=== PATIENT | male | born 2000 | race Caucasian/White ===

== ENCOUNTER 2024-04-24 12:01 | Emergency (ER) | payer OTHER, MEDICAID, SELFPAY ==
[2024-04-24] VITALS (14 sets, daily range): BP systolic 120–152; BP diastolic 69–98; PULSE 59–80; RESP 16–19; TEMP 36.2–37; O2SAT 98–100; BMI 23.6
--- NOTE | 2024-04-24 12:20 | EKG_ITS ---
[address] [address] Test Date: 2024-04-24 Pat Name: Laura Burr Department: [facility] Room: Gender: Male Global Coordinator: RENUKA : 2000 Requested By: Order Number: [id number] Reading MD: Norbert Torres MD Measurements Intervals [place] Rate: 69 P: 37 UT: 172 QRS: 94 QRSD: 116 T: 10 QT: 390 QTc: 417 Interpretive Statements Sinus rhythm with marked sinus arrhythmia Rightward axis Cannot rule out Inferior infarct , age undetermined NO PRIOR TRACING Electronically Signed On 04-25-2024 7:37:55 PDT by Norbert Torres MD
[2024-04-24] MEDS: SODIUM CHLORIDE 0.9% 1,000 ML 1000 ML IV (12:35)
[2024-04-24 12:47] LABS: Add Manual Diff / Slide Review NO; Basophils Absolute Auto 0 /uL (0-100); Basophils Percent Auto 0.4 % (0-2); Eosinophils Absolute Auto 100 /uL (0-450); Eosinophils Percent Auto 0.7 % (2-4); Hematocrit 43.5 % (41-53); Hemoglobin 14.6 g/dL (13.5-17.5); Lymphocytes Absolute Auto 1800 /uL (1100-4500); Lymphocytes Percent Auto 15.9 % (25-40); Mean Corpuscular HGB Conc 33.5 % (30-36); Mean Corpuscular Hemoglobin 30.1 PG (26-34); Mean Corpuscular Volume 89.9 fL (80-100); Monocytes Absolute Auto 1200 /uL (0-900); Monocytes Percent Auto 10.4 % (3-14); Neutrophils Absolute Auto 8200 /uL (1500-7000); Neutrophils Percent Auto 72.6 % (50-75); Platelet Count 329 X10^3/uL (150-400); Red Blood Cell Count 4.84 X10^6/uL (4.5-5.9); Red Cell Distribution Width 13.3 % (11.6-14.8); White Blood Cell Count 11.3 X10^3/uL (4.5-11.0)
[2024-04-24 12:54] LABS: Alanine Aminotransferase 27 IU/L (<50); Albumin 4.7 g/dL (3.5-5.0); Albumin Globulin Ratio 1.4 (1.0-2.8); Alkaline Phosphatase 64 U/L (38-126); Aspartate Aminotransferase 31 IU/L (17-59); BUN Creatinine Ratio 14.1 (6-22); Bilirubin Total 0.6 mg/dL (0.2-1.3); Blood Urea Nitrogen 11 mg/dL (9-20); Carbon Dioxide 25 mmol/L (22-32); Chloride 101 mmol/L (98-107); Estimated Glomerular Filt Rate > 60 mL/min (>60); Globulin 3.4 g/dL (1.7-4.1); Glucose 97 mg/dL (70-100); HEMOLYSIS < 15 (0-50); Lipase 61 U/L (23-300); Potassium 3.8 mmol/L (3.4-5.1); Sodium 138 mmol/L (137-145); Total Protein 8.1 g/dL (6.3-8.2)
[2024-04-24 12:55] LABS: Lactate (Lactic Acid) 0.7 mmol/L (0.7-2.1)
[2024-04-24 13:11] LABS: Procalcitonin 0.065 ng/mL (<0.5)
[2024-04-24 13:18] LABS: Adenovirus Not Detected (Not Detect); B. parapertussis Not Detected (Not Detecte); Bordetella pertussis Not Detected (Not Detect); Chlamydophila pneumoniae Not Detected (Not Detect); Coronavirus 229E Not Detected (Not Detect); Coronavirus HKU1 Not Detected (Not Detect); Coronavirus NL 63 Not Detected (Not Detect); Coronavirus OC43 Not Detected (Not Detect); Human Metapneumovirus Not Detected (Not Detect); Human Rhinovirus/Enterovirus Not Detected (Not Detect); Influenza A Not Detected (Not Detect); Influenza B Not Detected (Not Detect); Mycoplasma pneumoniae Not Detected (Not Detect); Parainfluenza Virus 1 Not Detected (Not Detect); Parainfluenza Virus 2 Not Detected (Not Detect); Parainfluenza Virus 3 Not Detected (Not Detect); Parainfluenza Virus 4 Not Detected (Not Detect); Respiratory Syncytial Virus Not Detected (Not Detect); SARS- CoV-2 Not Detected (Not Detecte)
--- NOTE | 2024-04-24 13:40 | ED.ABDPAIN ---
HPI - Abdominal Pain General Chief Complaint: Abdominal Pain Stated Complaint: chest px, fever Time Seen by Provider: 04/24/24 13:32 Source: patient Mode of arrival: Ambulatory History of Present Illness HPI narrative: Patient here for reproducible epigastric substernal discomfort with eating and swallowing. Ongoing for the past 5 days since Monday. Also has had fever 101 102? relieved with Tylenol. Worse with eating and swallowing. However no discomfort with at rest. Patient has low heart risk factors. No nausea or vomiting. No urinary complaints. No lower abdominal pain. No known sick contacts. Has had body aches. No primary family history of coronary disease Related Data Previous Rx's Medication Instructions Recorded pantoprazole 40 mg tablet,delayed 40 mg PO DAILY #30 tabs 04/24/24 release (Protonix) sucralfate 1 gram tablet (Carafate) 1 g PO QAC #20 tabs 04/24/24 Allergies Allergy/AdvReac Type Severity Reaction Status Date / Time ibuprofen Allergy Hives Verified 04/24/24 12:16 Review of Systems Review of Systems Narrative: GENERAL: negative chills, fatigue, malaise, positive fever, sweats. HEENT: negative sinus pain, ear pain, sore throat RESPIRATORY: negative dyspnea, cough CARDIOVASCULAR: Positive chest pain, negative palpitations GASTROINTESTINAL: negative nausea, vomiting, abdominal pain : negative dysuria, frequency, hematuria MUSCULOSKELETAL: negative muscle or bony pain SKIN: negative rash, skin lesions NEUROLOGIC: negative weakness, numbness Patient History tobacco type: vaping alcohol intake frequency: a few times a month Substance Use Type: does not use Exam Narrative Exam Narrative: GENERAL: in no distress, not toxic not dyspneic HEAD: Normocephalic. EYES: Pupils equal round ENT: Mucous membranes moist. NECK: Trachea midline. CARDIOVASCULAR: Regular rate and rhythm, no murmur, no friction rub, no pain on palpation or with leaning forward or back. RESPIRATORY: Clear to auscultation. Breath sounds equal bilaterally. No wheezes, rales, or rhonchi. GASTROINTESTINAL: Abdomen soft, non-tender no epigastric tenderness. EXTREMITIES: No gross deformities. BACK: No flank tenderness. NEURO: AOx4. SKIN: Warm and dry PSYCH: Not anxious, is cooperative Initial Vital Signs Initial Vital Signs: Vital Signs Temperature 97.2 F L 04/24/24 12:12 Pulse Rate 75 04/24/24 12:12 Respiratory Rate 16 04/24/24 12:12 Blood Pressure 152/98 H 04/24/24 12:12 Pulse Oximetry 100 04/24/24 12:12 Oxygen Delivery Method Room Air 04/24/24 12:12 Scores HEART Score Heart Score history: Slightly Suspicious Heart Score EKG: Non-Specific repolarization disturbance Heart Score Age: < 45 years old Heart Score risk factors: No known risk factors Heart Score troponin: < or = to normal limit Heart Score Total: 1 Course Orders Ordered: Discontinued Medications Al Hydrox/Mg Hydrox/Simethicone 20 ml/ Lidocaine HCl 15 ml 0 ml PO NOW ONE Stop: 04/24/24 13:40 Last Admin: 04/24/24 13:46 Dose: 35 ml Documented By: LOGAN Sodium Chloride (Normal Saline 0.9%) 1,000 mls @ 1,000 mls/hr IV BOLUS ONE Stop: 04/24/24 13:12 Last Infusion: 04/24/24 13:40 Dose: Infused Documented By: Admin: 04/24/24 12:35 Dose: 1,000 mls/hr Documented By: ENEDELIA Ondansetron HCl (Ondansetron 4 Mg/2 Ml Inj) 4 mg IV NOW PRN PRN Reason: Nausea And Vomiting Ondansetron HCl (Ondansetron 4 Mg Odt) 4 mg PO NOW PRN PRN Reason: Nausea And Vomiting Pantoprazole Sodium (Pantoprazole 40 Mg Vial) 40 mg IV NOW ONE Stop: 04/24/24 13:40 Last Admin: 04/24/24 13:49 Dose: 40 mg Documented By: LOGAN Vital Signs Vital signs: Vital Signs - 8 hr 04/24/24 12:12 04/24/24 13:45 04/24/24 13:46 Temperature 97.2 F L Pulse Rate 75 71 74 Respiratory Rate 16 Blood Pressure 152/98 H Pulse Oximetry 100 98 100 Oxygen Delivery Method Room Air 04/24/24 13:46 04/24/24 14:00 04/24/24 14:01 Temperature Pulse Rate 80 80 Respiratory Rate Blood Pressure 137/85 Pulse Oximetry 100 100 Oxygen Delivery Method 04/24/24 14:01 04/24/24 14:11 04/24/24 14:11 Temperature Pulse Rate 80 Respiratory Rate Blood Pressure 142/75 H 148/77 H Pulse Oximetry 98 Oxygen Delivery Method 04/24/24 14:30 04/24/24 14:30 04/24/24 15:00 Temperature Pulse Rate 71 Respiratory Rate Blood Pressure 120/74 125/69 Pulse Oximetry 99 Oxygen Delivery Method 04/24/24 15:00 Temperature Pulse Rate 72 Respiratory Rate Blood Pressure Pulse Oximetry 99 Oxygen Delivery Method MDM - Abdominal Pain Lab Data 04/24/24 12:30 04/24/24 12:30 Labs: Lab Results 04/24/24 04/24/24 04/24/24 Range/Units 12:12 12:20 12:30 WBC 11.3 H (4.5-11.0) X10^3/uL RBC 4.84 (4.5-5.9) X10^6/uL Hgb 14.6 (13.5-17.5) g/dL Hct 43.5 (41-53) % MCV 89.9 (80-100) fL MCH 30.1 (26-34) PG MCHC 33.5 (30-36) % RDW 13.3 (11.6-14.8) % Plt Count 329 (150-400) X10^3/uL Neut % (Auto) 72.6 (50-75) % Lymph % (Auto) 15.9 L (25-40) % Weber % (Auto) 10.4 (3-14) % Eos % (Auto) 0.7 L (2-4) % Baso % (Auto) 0.4 (0-2) % Neut # (Auto) 8200 H (2553-6177) /uL Lymph # (Auto) 1800 (6279-3110) /uL Weber # (Auto) 1200 H (0-900) /uL Eos # (Auto) 100 (0-450) /uL Baso # (Auto) 0 (0-100) /uL Sodium 138 (137-145) mmol/L Potassium 3.8 (3.4-5.1) mmol/L Chloride 101 (98-107) mmol/L Carbon Dioxide 25 (22-32) mmol/L BUN 11 (9-20) mg/dL Creatinine 0.78 (0.66-1.25) mg/dL Estimated GFR > 60 (>60) mL/min BUN/Creatinine Ratio 14.1 (6-22) Glucose 97 (70-100) mg/dL Lactate 0.7 (0.7-2.1) mmol/L Calcium 9.0 (8.4-10.2) mg/dL Total Bilirubin 0.6 (0.2-1.3) mg/dL AST 31 (17-59) IU/L ALT 27 (<50) IU/L Alkaline Phosphatase 64 (38-126) U/L Total Creatine Kinase 52 L (55-170) U/L Troponin I < 0.012 (0.01-0.034) ng/mL Total Protein 8.1 (6.3-8.2) g/dL Albumin 4.7 (3.5-5.0) g/dL Globulin 3.4 (1.7-4.1) g/dL Albumin/Globulin Ratio 1.4 (1.0-2.8) Lipase 61 (23-300) U/L Procalcitonin 0.065 (<0.5) ng/mL U Opiates 300ng/mL cut (Negative) Ur Oxycodone Screen (Negative) Urine Methadone Screen (Negative) Ur Barbiturates Screen (Negative) U Tricyclic Antidepress (Negative) Ur Phencyclidine Scrn (Negative) Ur Amphetamines Screen (Negative) U Methamphetamines Scrn (Negative) Ur MDMA Scrn (Ecstasy) (Negative) U Benzodiazepines Scrn (Negative) Urine Cocaine Screen (Negative) U Marijuana (THC) Screen (Negative) Urine pH (Normal) Urine Specific [place] (Normal) Ur Creatinine (Normal) Chlamy pneumoniae PCR Not detected (Not Detect) Adenovirus (PCR) Not detected (Not Detect) B.parapertussis DNA PCR Not detected (Not Detecte) Coronavirus OC43 (PCR) Not detected (Not Detect) Coronavirus HKU1 (PCR) Not detected (Not Detect) Coronavirus 229E (PCR) Not detected (Not Detect) SARS-CoV-2 (PCR) Not detected (Not Detecte) Coronavirus NL63 (PCR) Not detected (Not Detect) Human Metapneumovir PCR Not detected (Not Detect) Influenza Type A (PCR) Not detected (Not Detect) Influenza Type B (PCR) Not detected (Not Detect) M. pneumoniae (PCR) Not detected (Not Detect) Parainfluenza 1 (PCR) Not detected (Not Detect) Parainfluenza 2 (PCR) Not detected (Not Detect) Parainfluenza 3 (PCR) Not detected (Not Detect) Parainfluenza 4 (PCR) Not detected (Not Detect) RSV (PCR) Not detected (Not Detect) Entero/Rhino (PCR) Not detected (Not Detect) 04/24/24 Range/Units 13:55 WBC (4.5-11.0) X10^3/uL RBC (4.5-5.9) X10^6/uL Hgb (13.5-17.5) g/dL Hct (41-53) % MCV (80-100) fL MCH (26-34) PG MCHC (30-36) % RDW (11.6-14.8) % Plt Count (150-400) X10^3/uL Neut % (Auto) (50-75) % Lymph % (Auto) (25-40) % Weber % (Auto) (3-14) % Eos % (Auto) (2-4) % Baso % (Auto) (0-2) % Neut # (Auto) (0047-3857) /uL Lymph # (Auto) (2095-2255) /uL Weber # (Auto) (0-900) /uL Eos # (Auto) (0-450) /uL Baso # (Auto) (0-100) /uL Sodium (137-145) mmol/L Potassium (3.4-5.1) mmol/L Chloride (98-107) mmol/L Carbon Dioxide (22-32) mmol/L BUN (9-20) mg/dL Creatinine (0.66-1.25) mg/dL Estimated GFR (>60) mL/min BUN/Creatinine Ratio (6-22) Glucose (70-100) mg/dL Lactate (0.7-2.1) mmol/L Calcium (8.4-10.2) mg/dL Total Bilirubin (0.2-1.3) mg/dL AST (17-59) IU/L ALT (<50) IU/L Alkaline Phosphatase (38-126) U/L Total Creatine Kinase (55-170) U/L Troponin I (0.01-0.034) ng/mL Total Protein (6.3-8.2) g/dL Albumin (3.5-5.0) g/dL Globulin (1.7-4.1) g/dL Albumin/Globulin Ratio (1.0-2.8) Lipase (23-300) U/L Procalcitonin (<0.5) ng/mL U Opiates 300ng/mL cut Negative (Negative) Ur Oxycodone Screen Negative (Negative) Urine Methadone Screen Negative (Negative) Ur Barbiturates Screen Negative (Negative) U Tricyclic Antidepress Negative (Negative) Ur Phencyclidine Scrn Negative (Negative) Ur Amphetamines Screen Negative (Negative) U Methamphetamines Scrn Negative (Negative) Ur MDMA Scrn (Ecstasy) Negative (Negative) U Benzodiazepines Scrn Negative (Negative) Urine Cocaine Screen Negative (Negative) U Marijuana (THC) Screen Negative (Negative) Urine pH Normal (Normal) Urine Specific [place] Normal (Normal) Ur Creatinine Normal (Normal) Chlamy pneumoniae PCR (Not Detect) Adenovirus (PCR) (Not Detect) B.parapertussis DNA PCR (Not Detecte) Coronavirus OC43 (PCR) (Not Detect) Coronavirus HKU1 (PCR) (Not Detect) Coronavirus 229E (PCR) (Not Detect) SARS-CoV-2 (PCR) (Not Detecte) Coronavirus NL63 (PCR) (Not Detect) Human Metapneumovir PCR (Not Detect) Influenza Type A (PCR) (Not Detect) Influenza Type B (PCR) (Not Detect) M. pneumoniae (PCR) (Not Detect) Parainfluenza 1 (PCR) (Not Detect) Parainfluenza 2 (PCR) (Not Detect) Parainfluenza 3 (PCR) (Not Detect) Parainfluenza 4 (PCR) (Not Detect) RSV (PCR) (Not Detect) Entero/Rhino (PCR) (Not Detect) Point of care testing: Urine Dip Bedside Urine Glucose Negative Bedside Urine Bilirubin - Negative Bedside Urine Ketone +/- 5 Urine Specific [place] 1.020 Bedside Urine Occult Blood - Negative Bedside Urine pH 6.0 Bedside Urine Protein +/- 15 Bedside Urine Urobilinogen - Negative Bedside Urine Nitrite - Negative Bedside Urine Leukocytes - Negative Esterase Imaging Data CT scan - chest: Radiologist's Impression: [address] [address] [address] Scan Report Signed Patient: Laura Burr MR#: [id number] : 2000 Acct:[id number] Age/Sex: 24 / M Date of Service: 04/24/24 Loc: ED Accession Number: [id number] Procedure: CT angio chest PE protocol Ordering Provider: Aleksandar Dai MD PROCEDURE: CT ANGIO CHEST PE PROTOCOL INDICATIONS: Chest pain TECHNIQUE: After the administration of intravenous contrast, 2 mm thick sections acquired from the pulmonary apices to the posterior costophrenic angles. 3-dimensional maximum intensity projection (MIP) coronal and sagittal reformats were then acquired through the thorax. For radiation dose reduction, the following was used: automated exposure control, adjustment of mA and/or kV according to patient size. COMPARISON: None. FINDINGS: Image quality: Diagnostic. Pulmonary arteries: Pulmonary arteries are normal in size, and demonstrate no intraluminal filling defects to suggest central pulmonary embolism. Lower Neck: No enlarged lymph nodes. Thyroid: No thyroid nodules which require sonographic follow up, per consensus guidelines. Axillae: No enlarged lymph nodes. Chest Wall: Unremarkable. Bones: Unremarkable. Lungs and Pleura: No pneumothorax or pleural effusions. No consolidation or suspicious nodules. Heart: Heart size is normal. No pericardial effusion. Thoracic Vessels: No aortic aneurysm. Mediastinum and Jolly: No enlarged lymph nodes. Esophagus: No wall thickening. Small hiatal hernia. Upper Abdomen: Abnormally prominent left gastric lymph nodes with the largest single lymph node on image 132 of series 5 measuring 1.4 x 1.1 cm. Visualized upper abdomen solid organs and bowel loops appear normal. IMPRESSION: 1. No acute pulmonary emboli. 2. No acute pulmonary process. 3. Small hiatal hernia. 4. Abnormally prominent left gastric lymph nodes, measuring up to 1.4 x 1.1 cm. In this age group, this is most likely reactive adenopathy. Dictated by: Ziyad Doyle M.D. on 04/24/2024 at 16:51 Approved by: Ziyad Doyle M.D. on 04/24/2024 at 16:[address] [facility] Narrative Medical decision making narrative: Patient here for reproducible epigastric substernal discomfort with eating and swallowing. Ongoing for the past 5 days since Monday. Also has had fever 101 102? relieved with Tylenol. Worse with eating and swallowing. However no discomfort with at rest. Patient has low heart risk factors. No nausea or vomiting. No urinary complaints. No lower abdominal pain. No known sick contacts. Has had body aches After history and exam CBC CMP CT chest abdomen pelvis EKG troponin respiratory panel drug screen [facility] Medical records reviewed: No recent visit for this complaint Differential considered: Includes but not limited to gastritis acid reflux pericarditis myocarditis STEMI pancreatitis cholecystitis cholelithiasis Lab Test results independently reviewed as above. Pertinent findings: WBC 11.3 hemoglobin 14.6 sodium 138 potassium 3.8 BUN 11 creatinine 0.78 AST 31 ALT 27 lipase 61 procalcitonin 0.065 respiratory panel negative drug screen negative Independently reviewed EKG sinus rhythm rate [address] elevation or depression Imaging studies independently reviewed: CT chest no acute finding. There is hiatal hernia Consultations: None indicated at this time Treatments: Normal saline GI cocktail Protonix Zofran Re-evaluations: 4:30 p.m.. Friend at bedside. Patient states he has not been under a lot of stress. He is supposed to go to [employer] but has not. He states he has not stressed out. He does like spicy foods. He still has pain with trying to drink water here. Or heating. No improvement with GI cocktail Protonix. However I spoke with him this could be esophagitis/gastritis. It may take time for this to improve. I will start him on Protonix and Carafate. He will follow up with primary care. Discussion: Appropriate for discharge home. Exam is reassuring. Likely gastritis esophagitis hiatal hernia causing patient's discomfort in the chest with swallowing. Reviewed dietary changes. Nontoxic at discharge. Return precautions reviewed. Referral for General surgery for endoscopy of the stomach and esophagus provided. He desires discharge home. Friend at bedside. Diagnosis: Abdominal pain chest pain Discharge Plan Departure Patient Disposition: Home Clinical Impression: Abdominal pain Qualifiers: Abdominal location: epigastric Qualified Code(s): R10.13 - Epigastric pain Chest pain Qualifiers: Chest pain type: unspecified Qualified Code(s): R07.9 - Chest pain, unspecified Instructions: DI for Abdominal Pain-Adult Activity Restrictions/Additional Instructions: Your chest discomfort likely may be from irritation of your esophagus. Causing pain when you swallow. Please see your family doctor for re-evaluation or call Dr. Bay for outpatient endoscopy of your stomach and esophagus. No spicy foods no carbonated drinks. Prescriptions have been provided for you. Return if worse if any questions or concerns. Prescriptions: New sucralfate [Carafate] 1 gram tablet 1 g PO QAC Qty: 20 0RF pantoprazole [Protonix] 40 mg tablet,delayed release (DR/EC) 40 mg PO DAILY Qty: 30 0RF Referrals: Emanuel Bay MD [Physician] - Miscellaneous,MD Ivan [Primary Care Provider] - Stand Alone Forms: Patient Portal/API
[2024-04-24] MEDS: MAG HYDROX/ALUMINUM/SIMETH SUS 20 ML, LIDOCAINE VISCOUS 2% 15 ML PO (13:46)
--- NOTE | 2024-04-24 13:46 | DI.CT.S_ITS ---
PROCEDURE: CT ANGIO CHEST PE PROTOCOL INDICATIONS: Chest pain TECHNIQUE: After the administration of intravenous contrast, 2 mm thick sections acquired from the pulmonary apices to the posterior costophrenic angles. 3-dimensional maximum intensity projection (MIP) coronal and sagittal reformats were then acquired through the thorax. For radiation dose reduction, the following was used: automated exposure control, adjustment of mA and/or kV according to patient size. COMPARISON: None. FINDINGS: Image quality: Diagnostic. Pulmonary arteries: Pulmonary arteries are normal in size, and demonstrate no intraluminal filling defects to suggest central pulmonary embolism. Lower Neck: No enlarged lymph nodes. Thyroid: No thyroid nodules which require sonographic follow up, per consensus guidelines. Axillae: No enlarged lymph nodes. Chest Wall: Unremarkable. Bones: Unremarkable. Lungs and Pleura: No pneumothorax or pleural effusions. No consolidation or suspicious nodules. Heart: Heart size is normal. No pericardial effusion. Thoracic Vessels: No aortic aneurysm. Mediastinum and Jolly: No enlarged lymph nodes. Esophagus: No wall thickening. Small hiatal hernia. Upper Abdomen: Abnormally prominent left gastric lymph nodes with the largest single lymph node on image 132 of series 5 measuring 1.4 x 1.1 cm. Visualized upper abdomen solid organs and bowel loops appear normal. IMPRESSION: 1. No acute pulmonary emboli. 2. No acute pulmonary process. 3. Small hiatal hernia. 4. Abnormally prominent left gastric lymph nodes, measuring up to 1.4 x 1.1 cm. In this age group, this is most likely reactive adenopathy. Dictated by: Ziyda Doyle M.D. on 04/24/2024 at 16:51 Approved by: Ziyad Doyle M.D. on 04/24/2024 at 16:56
[2024-04-24] MEDS: PANTOPRAZOLE 40 MG VIAL IV (13:49)
[2024-04-24 14:17] LABS: UR Morphine/Opiate cutoff 300 Negative (Negative); Ur Creatinine Normal (Normal); Ur Specific Gravity Normal (Normal); Urine Amphetamines Negative (Negative); Urine Barbiturates Negative (Negative); Urine Benzodiazepines Negative (Negative); Urine Cocaine Negative (Negative); Urine MDMA Negative (Negative); Urine Methadone Negative (Negative); Urine Methamphetamines Negative (Negative); Urine Oxycodone Negative (Negative); Urine Phencyclidine Negative (Negative); Urine Tetrahydrocannabinol Negative (Negative); Urine Tricyclic Antidepressant Negative (Negative); Urine pH Normal (Normal)
[2024-04-24 14:17] LABS: Creatine Kinase 52 U/L (55-170)
[2024-04-24 14:30] LABS: Troponin I < 0.012 ng/mL (0.01-0.034)
== END 2024-04-24 17:48 | disposition home or self-care (01) ==
PROVIDERS: Emergency Provider Emergency Medicine
DX: R10.13 Epigastric pain (principal); R07.9 Chest pain, unspecified
CPT/HCPCS: 36415; 71275; 80053; 80305; 81003; 82550; 83605; 83690; 84145; 84484; 85025; 87633; 93005; 96361; 96374; 99284; J2470; Q9967

== ENCOUNTER 2024-04-30 06:54 | Day surgery (SDC) | payer OTHER, MEDICAID, SELFPAY ==
--- NOTE | 2024-04-30 | PATH_ITS ---
[facility] Accession Number: [id number] No. of containers..02 Tissue . 01 Material submitted: . PART A: esophagus, E-G Junction - G E JUNCTION PART B: esophagus - RANDOM ESOPHAGUS BX . 01 Diagnosis: Part A: G E JUNCTION: Inflamed granulation tissue and inflammatory exudate, consistent with ulcer bed. No dysplasia, malignancy, or infectious organisms identified. . Specimen Comments: No intact epithelium is present. . Part B: RANDOM ESOPHAGUS BX: Squamous mucosa with increased intraepithelial eosinophils (focally up to 25 per high power field). See comment. . Specimen Comments: The features suggest the possibility of eosinophilic esophagitis in the right clinical setting, particularly if any of the biopsies were taken from the mid to upper esophagus. Severe reflux also enters the differential diagnosis and clinical correlation is recommended. [facility] 05/03/2024 1406 Local . 01 Electronically signed: . Jonathan King MD, Pathologist NPI- [id number] . 01 Gross description: . Part A: G E JUNCTION: Received in formalin are 3 real soft tissue fragment measuring from .2 x .2 x .1 cm to .3 x .2 x .2 cm. Entirely submitted in 1 cassette. . Part B: RANDOM ESOPHAGUS BX: Received in formalin are 2 fragment(s) of real, soft tissue measuring .7 x .3 x .2 cm which are and submitted entirely in 1 cassette(s) /[facility]RE[facility] 05/03/2024 1406 Local . 01 Microscopic: . Part A: G E JUNCTION: An ABPAS stain was performed to evaluate for fungal organisms and is negative. HSV and CMV virus immunostains* were performed, and are negative. All controls stained appropriately. . * This test was developed and its performance characteristics determined by [employer] It has not been cleared or approved by the U.S. Food and Drug Administration. The FDA has determined that such clearance or approval is not necessary. This test is used for clinical purposes. It should not be regarded as investigational or for research. . Part B: RANDOM ESOPHAGUS BX: An ABPAS stain was performed to evaluate for fungal organisms and is negative. The control stains appropriately. . 01 Pathologist provided ICD-10: K20.0, K22.10 . 01 CPT . 546467, 093204, 826166, 829035, [id number], [id number] Specimen Comment: A courtesy copy of this report has been sent to [phone] Performed at: [address] [facility], [place], [place] [id number] MD Jonathan King MD Phone: [phone]
[2024-04-30] MEDS: LACTATED RINGERS 1,000 ML 42 ML IV (07:20)
[2024-04-30 07:32] VITALS: BP 134/87; PULSE 88; RESP 16; TEMP 36.5; O2SAT 100
--- NOTE | 2024-04-30 07:44 | PM.PREOP ---
Pre-operative Note Interval Note History & Physical reviewed/Exam performed by Physician: Yes Changes to H&P: No
--- NOTE | 2024-04-30 08:12 | PM.OP.EGD ---
Operative Date/Time/Diagnoses Date of procedure: 04/30/24 Time of procedure: 08:12 Pre-op diagnosis: Esophageal dysphagia Procedure & Clinicians Study performed: Esophagogastroduodenoscopy Same procedure as scheduled: Yes Indications: Dysphagia Surgeon: Emanuel Bay Procedure Notes Procedure in detail: The history and physical was performed/updated and the patient is ASA class is 2. The procedure was discussed in detail with the patient. Potential risks complications including infection, bleeding, missed diagnosis, perforation, need for surgery, and were explained. Their questions were answered and informed consent was obtained. Patient placed in left lateral decubitus position. Time out was performed. Procedural sedation was administered by Anesthesia. A bite block was placed. the scope was inserted into the mouth and advanced through the esophagus and into the stomach. The pylorus was intubated and the duodenum was examined to the 2nd portion. The scope was then withdrawn into the stomach and was retroflexed. The stomach was decompressed and scope was withdrawn slowly through the esophagus. FINDINGS -no hiatal hernia -mild esophagitis at the GE junction. Biopsy of junction performed with forceps. -long linear furrows within the esophageal mucosa suggestive of eosinophilic esophagitis. Random esophageal biopsies taken with forceps. The patient tolerated the procedure well and will be discharged when they meet criteria. Specimen(s): other (GE junction, random esophageal biopsy) Impression: Perhaps eosinophilic esophagitis Post-procedure Plan for aftercare: Continue pantoprazole as written. We will notify with biopsy. Disposition: same day surgery
[2024-04-30 08:30] VITALS: BP 106/74; PULSE 73; RESP 17; TEMP 36.1; O2SAT 98
[2024-04-30 08:36] VITALS: BP 103/71; PULSE 71; RESP 11; O2SAT 100
[2024-04-30 08:39] VITALS: BP 112/79; PULSE 79; RESP 15; TEMP 36.1; O2SAT 99
== END 2024-04-30 08:53 | disposition home or self-care (01) ==
PROVIDERS: PCP Nurse Practitioner Family; Referring Provider Surgery; Visit Provider Surgery
PROC: 0DJ08ZZ Inspection of Upper Intestinal Tract, Via Natural or Artificial Opening Endoscopic (ICD-10-PCS; CPT 43235; principal; 2024-04-30 08:15)
DX: K20.90 Esophagitis, unspecified without bleeding (principal)
CPT/HCPCS: 43239; J2704